=== PATIENT | male | born 1975 | race Caucasian/White ===

== ENCOUNTER → 2020-04-16 07:47 | Outpatient (CLI) | payer OTHER, SELFPAY ==
[2020-04-16 08:29] LABS: Add Manual Diff / Slide Review NO; Alanine Aminotransferase 42 IU/L (<50); Albumin 4.1 g/dL (3.5-5.0); Albumin Globulin Ratio 1.3 (1.0-2.8); Alkaline Phosphatase 63 U/L (38-126); Aspartate Aminotransferase 28 IU/L (17-59); BUN Creatinine Ratio 23.8 (6-22); Basophils Absolute Auto 100 /uL (0-100); Basophils Percent Auto 1.3 % (0-2); Bilirubin Total 0.4 mg/dL (0.2-1.3); Blood Urea Nitrogen 20 mg/dL (9-20); Calcium 9.4 mg/dL (8.4-10.2); Carbon Dioxide 32 mmol/L (22-32); Chloride 103 mmol/L (98-107); Cholesterol 240 mg/dL (140-199); Eosinophils Absolute Auto 300 /uL (0-450); Eosinophils Percent Auto 5.5 % (2-4); Estimated Glomerular Filt Rate > 60.0 mL/min (>60); Globulin 3.1 g/dL (1.7-4.1); Glucose 109 mg/dL (70-100); HDL Cholesterol 44 mg/dL (40-60); HEMOLYSIS < 15 (0-50); Hematocrit 42.6 % (41-53); Hemoglobin 14.4 g/dL (13.5-17.5); LDL Cholesterol Calculated 171 mg/dL (<100); Lymphocytes Absolute Auto 1800 /uL (1100-4500); Lymphocytes Percent Auto 33.3 % (25-40); Mean Corpuscular HGB Conc 33.7 % (30-36); Mean Corpuscular Hemoglobin 28.6 PG (26-34); Mean Corpuscular Volume 84.8 fL (80-100); Monocytes Absolute Auto 400 /uL (0-900); Monocytes Percent Auto 7.3 % (3-14); Neutrophils Absolute Auto 2800 /uL (1500-7000); Neutrophils Percent Auto 52.6 % (50-75); Platelet Count 294 X10^3/uL (150-400); Potassium 4.2 mmol/L (3.4-5.1); Red Blood Cell Count 5.02 X10^6/uL (4.5-5.9); Red Cell Distribution Width 12.9 % (11.6-14.8); Sodium 138 mmol/L (137-145); Total Protein 7.2 g/dL (6.3-8.2); Triglycerides 126 mg/dL (35-150); White Blood Cell Count 5.3 X10^3/uL (4.5-11.0)
[2020-04-16 09:21] LABS: TSH w/ Reflex to FT4 0.84 uIU/mL (0.47-4.68)
== END ==
PROVIDERS: PCP Family Medicine; Referring Provider Family Medicine; Visit Provider Family Medicine
DX: I10 Essential (primary) hypertension (principal)
CPT/HCPCS: 36415; 80053; 80061; 84443; 85025

== ENCOUNTER → 2020-05-28 16:43 | Outpatient (CLI) | payer OTHER, SELFPAY ==
[2020-05-28] MEDS: COVID-19 VACC, Ad26(JANSSEN)/PF 0.5 ML IM (16:54)
== END ==
PROVIDERS: PCP Family Medicine; Visit Provider Internal Medicine
DX: Z23 Encounter for immunization (principal)
CPT/HCPCS: 0031A; 91303

== ENCOUNTER 2020-07-06 13:26 | Emergency (ER) | payer OTHER, SELFPAY ==
[2020-07-06 13:31] VITALS: BP 156/88; PULSE 75; RESP 16; TEMP 36.9; O2SAT 100
--- NOTE | 2020-07-06 13:31 | DI.RAD.S_ITS ---
PROCEDURE: XR FINGER LT MIN 2V INDICATIONS: pain/swelling after fall TECHNIQUE: AP hand, 2 views of the 3rd finger(s) acquired. COMPARISON: None. FINDINGS: Bones: No fractures or dislocations. No suspicious bony lesions. Soft tissues: No suspicious soft tissue calcifications. IMPRESSION: No acute fracture. No osseous lesion. If symptoms and/or clinical suspicion for pathology persist, further assessment with repeat, or advanced imaging (e.g., CT, MRI, or bone scan) may be helpful for further assessment. Dictated by: Karen Bazzi M.D. on 07/06/2020 at 14:05 Approved by: Karen Bazzi M.D. on 07/06/2020 at 14:06
--- NOTE | 2020-07-06 13:39 | ED.UPPEXIN ---
HPI - Extremity Injury (Upper) General Chief Complaint: Extremity Injury, Upper Stated Complaint: left middle finger injury, fell and caught self Time Seen by Provider: 07/06/20 13:26 Source: patient Mode of arrival: Ambulatory Limitations: no limitations History of Present Illness HPI narrative: 45-year-old male nonsmoker with history of hypertension hyperlipidemia presents with family in the chief complaint of an injury to his left middle finger just prior to arrival. He had fallen while on his bow and injured his extended middle finger and now has pain with range of motion and some mild swelling. He has no numbness, tingling or weakness. He denies any wrist, elbow or shoulder pain and is otherwise well and free of complaint MD complaint: injury to: left and finger Onset (ago): hour(s) Other injuries: none Handedness: right Place: outdoors Severity: mild Relieving factors: rest Exacerbating factors: movement of extremity Context: direct blow Associated symptoms: denies other symptoms Related Data Previous Rx's Medication Instructions Recorded atorvastatin 20 mg tablet 20 mg PO DAILY #90 tab 04/21/20 hydrochlorothiazide 25 mg tablet 25 mg PO QDAY #90 tab 06/01/20 Allergies Allergy/AdvReac Type Severity Reaction Status Date / Time No Known Drug Allergies Allergy Verified 04/21/20 11:01 Review of Systems Constitutional Constitutional: Denies chills, Denies fatigue, Denies fever(s), Denies frequent falls, Denies lethargy and Denies weakness Eyes Eyes: Denies change in vision, Denies eye discharge, Denies irritation and Denies loss of vision ENT Ears, Nose, Mouth, and Throat: Denies change in voice, Denies dizziness, Denies neck pain, Denies sore throat and Denies throat swelling Cardiovascular Cardiovascular: Denies chest pain, Denies irregular heart rhythm, Denies lightheadedness, Denies palpitations, Denies dyspnea, Denies dyspnea on exertion and Denies orthopnea Respiratory Respiratory: Denies cough, Denies dyspnea, Denies dyspnea on exertion and Denies wheezing Gastrointestinal Gastrointestinal: Denies abdominal pain, Denies change in bowel habits, Denies diarrhea, Denies nausea and Denies vomiting Musculoskeletal Musculoskeletal: Reports arthralgias, Reports joint swelling, Denies neck pain and Denies numbness Integumentary/Breasts Skin/Breast: Denies pruritus, Denies erythema, Denies rash and Denies wounds Neurologic Neurologic: Denies behavioral changes, Denies confusion, Denies dizziness, Denies frequent falls, Denies loss of vision, Denies numbness and Denies weakness Psychiatric Psychiatric: Denies anxiety, Denies behavioral changes, Denies confusion, Denies depression, Denies homicidal ideation and Denies suicidal ideation Endocrine Endocrine: Denies fatigue, Denies flushing and Denies palpitations Hematologic/Lymphatic Hematologic/Lymphatic: Denies easy bruising Allergic/Immunologic Allergic/Immunologic: Denies urticaria, Denies throat swelling and Denies wheezing Patient History Medical History (Updated 07/06/20 @ 14:01 by Arnulfo Edwards DO) History of nephrolithiasis Lower urinary tract symptoms (LUTS) Melanoma Surgical History History of vasectomy Status post hernia repair Family History Father Age: 66 BPH (benign prostatic hyperplasia) Mother Age: 67 Essential hypertension Grandfather Dementia without behavioral disturbance, unspecified dementia type Grandmother Age: 97 Ulcerative pancolitis without complication Social History marital status: Smoking Status: Never smoker alcohol intake: current (1-2 A DAY ) substance use type: does not use Smoking Status: Never smoker Exam Narrative Exam Narrative: GEN: AOx3 and in mild distress EYES: Pupils are equal, round, and reactive to light and accommodation. Extraoccular muscles are intact bilaterally. There is no subconjunctival hemorrhage or exudate. CHEST: Lungs are clear to auscultation bilaterally and free of wheezes, rales, or rhonchi. Heart rate is regular rhythm, there are no murmurs, clicks, rubs, or gallops. There is no chest wall tenderness. ABD: Abdomen is soft and nontender. There is no guarding or rebound. Bowel sounds are normal in all 4 quadrants. There is no mass or organomegaly. EXT: Full but painful range of motion of left middle finger, most tender any proximal phalanx, patient is able to make a fist, this is closed, isolated and neurovascularly intact. SKIN: Warm, pink, and dry. No erythema or rash Initial Vital Signs Initial Vital Signs: Vital Signs Temperature 98.5 F 07/06/20 13:31 Pulse Rate 75 07/06/20 13:31 Respiratory Rate 16 07/06/20 13:31 Blood Pressure 156/88 H 07/06/20 13:31 Pulse Oximetry 100 07/06/20 13:31 Procedures Orthopedic Splinting/Casting Injury #1: Side: left Upper Extremity Injury Location: finger Upper Extremity Immobilizer: aluminum form splint Post splinting neuro exam: intact Post splinting vascular exam: intact Placed by: Nursing Course Orders Ordered: ED Orders 07/06/20 13:31 XR finger LT min 2V Stat Vital Signs Vital signs: Vital Signs - 8 hr 07/06/20 13:31 Temperature 98.5 F Pulse Rate 75 Respiratory Rate 16 Blood Pressure 156/88 H Pulse Oximetry 100 MDM - Extremity Injury (Upper) Imaging Data Extremity x-ray #1: Radiologist's Impression: [address] [id number] ReportSigned Patient: Edmond Dimas RMR#: [id number]: [id number]:[id number]/Sex: 45 / MDate of Service: 07/06/20Loc: EDAccession Number: [id number] Procedure: XR finger LT min 2V Ordering Provider: Arnulfo Edwards D.O. PROCEDURE: XR FINGER LT MIN 2V INDICATIONS: pain/swelling after fall TECHNIQUE: AP hand, 2 views of the 3rd finger(s) acquired. COMPARISON: None. FINDINGS: Bones: No fractures or dislocations. No suspicious bony lesions. Soft tissues: No suspicious soft tissue calcifications. IMPRESSION: No acute fracture. No osseous lesion. If symptoms and/or clinical suspicion for pathology persist, further assessment with repeat, or advanced imaging (e.g., CT, MRI, or bone scan) may be helpful for further assessment. Dictated by: Karen Bazzi M.D. on 07/06/2020 at 14:05 Approved by: Karen Bazzi M.D. on 07/06/2020 at 14:06 Discharge Plan Departure Patient Disposition: Home Clinical Impression: Finger sprain Qualifiers: Encounter type: initial encounter Finger: middle finger Sprain of finger site: other site Laterality: left Qualified Code(s): S63.693A - Other sprain of left middle finger, initial encounter Instructions: Finger Sprain Activity Restrictions/Additional Instructions: *You have been diagnosed with [fall with finger sprain, no evidence of fracture or dislocation on the imaging] *What to do: *Please continue to take your regular medications as directed. [ ] New medication prescriptions sent to your pharmacy: [ ] [ ] New medication written as a paper prescription [ x] No new medications given *Please follow up with your primary care provider in 2-3 days, call for an appointment. Let them know you were seen in the Emergency Department and that we ask that you be seen in follow up. We will electronically transmit a record of today's note if your PCP is in our system *If you do not have a primary care provider please contact the [facility] Resource line at [phone]. They will ask some questions about your medical history and help get you set up with a doctor in the community. *Return to Emergency Department if you should have any new, worsening or concerning symptoms, such as [fever greater than 101 F, shaking chills, worsening pain, persistent vomiting or other bothersome symptoms] Prescriptions: No Action atorvastatin [Lipitor] 20 mg tablet 20 mg PO DAILY Qty: 90 RF: 3 hydrochlorothiazide 25 mg tablet 25 mg PO QDAY Qty: 90 RF: 1 Referrals: Macrus To MD [Primary Care Provider] -
== END 2020-07-06 14:08 | disposition home or self-care (01) ==
PROVIDERS: Emergency Provider Emergency Medicine; PCP Family Medicine
DX: S63.693A Other sprain of left middle finger, initial encounter (principal); W19.XXXA Unspecified fall, initial encounter
CPT/HCPCS: 73140; 99281; 99283

== ENCOUNTER → 2021-11-30 08:19 | Outpatient (CLI) | payer OTHER, SELFPAY ==
[2021-11-30 10:49] LABS: Alanine Aminotransferase 43 IU/L (<50); Albumin Globulin Ratio 1.5 (1.0-2.8); Alkaline Phosphatase 59 U/L (38-126); Aspartate Aminotransferase 28 IU/L (17-59); Bilirubin Total 0.6 mg/dL (0.2-1.3); Blood Urea Nitrogen 18 mg/dL (9-20); Calcium 9.3 mg/dL (8.4-10.2); Carbon Dioxide 26 mmol/L (22-32); Chloride 103 mmol/L (98-107); Cholesterol 141 mg/dL (140-199); Estimated Glomerular Filt Rate > 60 mL/min (>60); Globulin 2.7 g/dL (1.7-4.1); Glucose 91 mg/dL (70-100); HDL Cholesterol 41 mg/dL (40-60); HEMOLYSIS < 15 (0-50); LDL Cholesterol Calculated 88 mg/dL (<100); Potassium 4.6 mmol/L (3.4-5.1); Sodium 140 mmol/L (137-145); Total Protein 6.7 g/dL (6.3-8.2); Triglycerides 58 mg/dL (35-150)
[2021-11-30 11:08] LABS: TSH w/ Reflex to FT4 0.51 uIU/mL (0.47-4.68)
[2021-11-30 11:12] LABS: Testosterone 410 ng/dL (132-813)
[2021-11-30 11:34] LABS: Creatinine Urine Random 213.5 mg/dL
[2021-11-30 11:44] LABS: Microalbumi Creatinin Ratio Ur 4.6 ug/mg CR (<30)
== END ==
PROVIDERS: PCP Family Medicine; Referring Provider Physician Assistant; Visit Provider Physician Assistant
DX: E78.2 Mixed hyperlipidemia (principal); I10 Essential (primary) hypertension; N52.9 Male erectile dysfunction, unspecified; R53.83 Other fatigue
CPT/HCPCS: 36415; 80053; 80061; 82043; 82570; 84403; 84443

== ENCOUNTER → 2022-08-22 10:34 | Outpatient (CLI) | payer OTHER, SELFPAY | PROVIDERS: PCP Family Medicine; Visit Provider Registered Nurse | DX: R30.0 Dysuria (principal) | CPT/HCPCS: 87086 ==

== ENCOUNTER → 2023-03-23 13:48 | Outpatient (CLI) | payer OTHER, SELFPAY | PROVIDERS: PCP Family Medicine; Visit Provider Nurse Practitioner Family | DX: R30.0 Dysuria (principal) | CPT/HCPCS: 87077; 87086; 87186 ==

== ENCOUNTER → 2023-04-17 10:15 | Outpatient (CLI) | payer OTHER, SELFPAY | PROVIDERS: PCP Family Medicine; Visit Provider Physician Assistant | DX: R30.0 Dysuria (principal) | CPT/HCPCS: 87077; 87086; 87186 ==

== ENCOUNTER → 2023-04-18 07:49 | Outpatient (CLI) | payer OTHER, SELFPAY ==
[2023-04-18 08:13] LABS: Add Manual Diff / Slide Review NO; Basophils Absolute Auto 0 /uL (0-100); Basophils Percent Auto 0.9 % (0-2); Eosinophils Absolute Auto 200 /uL (0-450); Eosinophils Percent Auto 4.5 % (2-4); Hematocrit 36.8 % (41-53); Hemoglobin 12.7 g/dL (13.5-17.5); Lymphocytes Absolute Auto 1600 /uL (1100-4500); Lymphocytes Percent Auto 30.2 % (25-40); Mean Corpuscular HGB Conc 34.4 % (30-36); Mean Corpuscular Hemoglobin 28.5 PG (26-34); Mean Corpuscular Volume 82.9 fL (80-100); Monocytes Absolute Auto 500 /uL (0-900); Monocytes Percent Auto 8.8 % (3-14); Neutrophils Absolute Auto 3000 /uL (1500-7000); Neutrophils Percent Auto 55.6 % (50-75); Platelet Count 208 X10^3/uL (150-400); Red Blood Cell Count 4.44 X10^6/uL (4.5-5.9); Red Cell Distribution Width 13.4 % (11.6-14.8); White Blood Cell Count 5.4 X10^3/uL (4.5-11.0)
[2023-04-18 08:24] LABS: Hemoglobin A1C% w Est Avg Glu 6.2 % (4.0-6.0)
[2023-04-18 08:45] LABS: Alanine Aminotransferase 36 IU/L (<50); Albumin 3.9 g/dL (3.5-5.0); Albumin Globulin Ratio 1.3 (1.0-2.8); Alkaline Phosphatase 68 U/L (38-126); Aspartate Aminotransferase 24 IU/L (17-59); BUN Creatinine Ratio 22.3 (6-22); Bilirubin Total 0.7 mg/dL (0.2-1.3); Blood Urea Nitrogen 21 mg/dL (9-20); Calcium 9.2 mg/dL (8.4-10.2); Carbon Dioxide 26 mmol/L (22-32); Chloride 103 mmol/L (98-107); Cholesterol 179 mg/dL (140-199); Estimated Glomerular Filt Rate > 60 mL/min (>60); Globulin 2.9 g/dL (1.7-4.1); Glucose 115 mg/dL (70-100); HDL Cholesterol 47 mg/dL (40-60); HEMOLYSIS < 15 (0-50); LDL Cholesterol Calculated 97 mg/dL (<100); Potassium 4.2 mmol/L (3.4-5.1); Sodium 136 mmol/L (137-145); Total Protein 6.8 g/dL (6.3-8.2); Triglycerides 177 mg/dL (35-150)
[2023-04-18 09:05] LABS: TSH w/ Reflex to FT4 1.31 uIU/mL (0.47-4.68)
[2023-04-18 09:08] LABS: Prostate Specific Antigen Scrn 6.55 ng/mL (0.1-4.0)
== END ==
PROVIDERS: PCP Family Medicine; Referring Provider Family Medicine; Visit Provider Family Medicine
DX: I10 Essential (primary) hypertension (principal); E78.5 Hyperlipidemia, unspecified; R39.9 Unspecified symptoms and signs involving the genitourinary system; Z12.5 Encounter for screening for malignant neoplasm of prostate
CPT/HCPCS: 36415; 80053; 80061; 83036; 84443; 85025; G0103

== ENCOUNTER → 2023-06-08 07:29 | Outpatient (CLI) | payer OTHER, SELFPAY ==
--- NOTE | 2023-06-08 07:33 | DI.US.S_ITS ---
PROCEDURE: US RENAL COMPLETE INDICATIONS: BPH; HX KIDNEY STONES TECHNIQUE: Real-time scanning was performed of the kidneys and bladder, with image documentation. COMPARISON: None. FINDINGS: Kidneys: Kidneys are normal in size. Right kidney measures 11.6 cm long; left kidney measures 12.2 cm long. Right renal cortical thickness is 1.3 cm; left renal cortical thickness is 1.5 cm. Renal cortical echotexture is normal. No hydronephrosis bilaterally. No right-sided nephrolithiasis. Left-sided nonobstructive nephrolith in the lower pole measuring 4 mm. No suspicious solid mass lesions. Bladder: Pre-void bladder volume is 103 mL. Post-void residual is 0 mL. Pre-void images demonstrate no intraluminal masses or stones. On pre-void images, left ureteral jets are noted with color Doppler interrogation. (Of note, ureteral jets may not be detectable in up to 25% of cases due to insufficient differences in specific gravity between ureteral and bladder urine). Miscellaneous: No free pelvic fluid. IMPRESSION: 1. No hydronephrosis bilaterally. Left lower pole nonobstructive nephrolith measuring 4 mm. 2. Bladder is under distended, limiting evaluation, with no intraluminal masses or stones. No significant postvoid residual. Dictated by: Shavon Barakat M.D. on 06/08/2023 at 10:04 Approved by: Shavon Barakat M.D. on 06/08/2023 at 10:15
== END ==
LOC: US 07:30
PROVIDERS: PCP Family Medicine; Referring Provider Specialist; Visit Provider Specialist
DX: N40.1 Benign prostatic hyperplasia with lower urinary tract symptoms (principal); R10.32 Left lower quadrant pain; Z87.440 Personal history of urinary (tract) infections; N20.0 Calculus of kidney
CPT/HCPCS: 36415; 76770; 84153

== ENCOUNTER → 2023-07-24 09:41 | Outpatient (CLI) | payer OTHER, SELFPAY ==
[2023-07-24 11:13] LABS: Hemoglobin A1C% w Est Avg Glu 5.7 % (4.0-6.0)
[2023-07-24 11:27] LABS: BUN Creatinine Ratio 26.3 (6-22); Blood Urea Nitrogen 26 mg/dL (9-20); Carbon Dioxide 25 mmol/L (22-32); Chloride 105 mmol/L (98-107); Estimated Glomerular Filt Rate > 60 mL/min (>60); Glucose 88 mg/dL (70-100); HEMOLYSIS < 15 (0-50); Potassium 3.9 mmol/L (3.4-5.1); Sodium 137 mmol/L (137-145)
[2023-07-24 11:56] LABS: Prostate Specific Antigen Scrn 3.93 ng/mL (0.1-4.0)
== END ==
PROVIDERS: PCP Family Medicine; Referring Provider Family Medicine; Visit Provider Family Medicine
DX: R73.01 Impaired fasting glucose (principal); Z12.5 Encounter for screening for malignant neoplasm of prostate
CPT/HCPCS: 36415; 80048; 83036; G0103

== ENCOUNTER → 2023-08-28 08:30 | Outpatient (CLI) | payer OTHER, SELFPAY ==
--- NOTE | 2023-08-28 08:31 | DI.RAD.S_ITS ---
PROCEDURE: XR KUB INDICATIONS: History of urinary calculi TECHNIQUE: One view of the abdomen acquired. COMPARISON: [facility], , US RENAL COMPLETE, 06/08/2023, 7:52. FINDINGS: Surgical changes and devices: None. Bowel: Bowel gas pattern is normal. Soft tissues: No suspicious abdominal calcifications. Visualized solid organ contours appear normal in size. Bones: No suspicious bony lesions. IMPRESSION: No calcifications overlying the renal shadows or expected course of the ureters. Dictated by: Gladys Gonzalez M.D. on 08/28/2023 at 15:26 Approved by: Gladys Gonzalez M.D. on 08/28/2023 at 15:27
== END ==
PROVIDERS: PCP Family Medicine; Referring Provider Specialist; Visit Provider Specialist
DX: R10.32 Left lower quadrant pain (principal); R39.9 Unspecified symptoms and signs involving the genitourinary system; Z87.442 Personal history of urinary calculi
CPT/HCPCS: 74018

== ENCOUNTER → 2023-09-07 16:32 | Outpatient (CLI) | payer OTHER, SELFPAY ==
--- NOTE | 2023-09-07 17:00 | DI.MRI.S_ITS ---
PROCEDURE: MR PELVIC PROSTATE PROTOCOL INDICATIONS: elevated psa TECHNIQUE: Coronal HASTE, axial T1 FSE with fat saturation, 3-plane nonbreath-hold T2 FSE. After the administration of contrast, dynamic axial, delayed axial and coronal VIBE or 2-D FLASH with fat saturation through the pelvis. Diffusion weighted imaging and ADC was performed. COMPARISON: None. FINDINGS: Image quality: Diffusion weighted and dynamic contrast enhanced images are diagnostic. Prostate: 4.6 x 3.3 x 3.6. Estimated volume is 28.4. PSA density is 0.14. Transitional zone heterogenous nodules are present, either well encapsulated or mostly encapsulated, compatible with PI-RADS 1 or 2 likely BPH nodules. Mildly T2 hypointense heterogenous striated appearance of the peripheral zone is commonly seen with current or prior prostatitis, PI-RADS 2. Left central gland lesion measures 1 x 0.8 x 0.8 cm (/, 06/29). DWI score 3. DCE negative. T2 score 3. PI-RADS 3. The seminal vesicles are clear, no extracapsular disease. Genitourinary system: Unremarkable bladder and distal ureters partially seen Bowel and peritoneum: No ascites. No bowel obstruction. Nodes and vessels: No aneurysmal vessel. No pathologic lymph nodes by size criteria Soft tissues: No inguinal hernias. Bones: No suspicious enhancing osseous abnormality IMPRESSION: PI-RADS 3 lesion in the left central gland. Sequelae of BPH and probable prostatitis. No high suspicion PI-RADS 4 or 5 lesion identified. Dictated by: Antonio Babcock M.D. on 09/08/2023 at 9:34 Approved by: Antonio Babcock M.D. on 09/08/2023 at 9:43
[2023-09-07 19:01] LABS: Prostate Specific Antigen 3.93 ng/mL (0.10-4.00)
== END ==
PROVIDERS: PCP Family Medicine; Referring Provider Specialist; Visit Provider Specialist
DX: N42.9 Disorder of prostate, unspecified (principal); R97.20 Elevated prostate specific antigen [PSA]
CPT/HCPCS: 36415; 72197; 84153; A9579

== ENCOUNTER → 2023-10-28 10:33 | Outpatient (CLI) | payer OTHER, SELFPAY ==
[2023-10-28 11:46] LABS: Hemoglobin A1C% w Est Avg Glu 5.6 % (4.0-6.0)
== END ==
LOC: LAB 10:34
PROVIDERS: PCP Family Medicine; Referring Provider Family Medicine; Visit Provider Family Medicine
DX: I10 Essential (primary) hypertension (principal); E78.5 Hyperlipidemia, unspecified; E11.9 Type 2 diabetes mellitus without complications
CPT/HCPCS: 36415; 83036

== ENCOUNTER → 2024-01-25 07:23 | Outpatient (CLI) | payer OTHER, SELFPAY ==
[2024-01-25 08:21] LABS: Hemoglobin A1C% w Est Avg Glu 5.4 % (4.0-6.0)
== END ==
PROVIDERS: PCP Family Medicine; Referring Provider Family Medicine; Visit Provider Family Medicine
DX: E11.9 Type 2 diabetes mellitus without complications (principal)
CPT/HCPCS: 36415; 83036

== ENCOUNTER → 2024-02-16 09:25 | Outpatient (CLI) | payer OTHER, SELFPAY ==
[2024-02-16 10:59] LABS: Prostate Specific Antigen 1.63 ng/mL (0.10-4.00)
== END ==
PROVIDERS: PCP Family Medicine; Referring Provider Urology; Visit Provider Urology
DX: R97.20 Elevated prostate specific antigen [PSA] (principal)
CPT/HCPCS: 36415; 84153

== ENCOUNTER → 2024-07-22 13:34 | Outpatient (CLI) | payer OTHER, SELFPAY ==
[2024-07-22 13:56] LABS: Add Manual Diff / Slide Review NO; Basophils Absolute Auto 100 /uL (0-100); Basophils Percent Auto 1.1 % (0-2); Eosinophils Absolute Auto 100 /uL (0-450); Eosinophils Percent Auto 2.1 % (2-4); Hematocrit 40.2 % (41-53); Hemoglobin 14.1 g/dL (13.5-17.5); Lymphocytes Absolute Auto 1900 /uL (1100-4500); Lymphocytes Percent Auto 29.1 % (25-40); Mean Corpuscular Hemoglobin 29.9 PG (26-34); Mean Corpuscular Volume 85.3 fL (80-100); Monocytes Absolute Auto 400 /uL (0-900); Monocytes Percent Auto 5.6 % (3-14); Neutrophils Absolute Auto 4000 /uL (1500-7000); Neutrophils Percent Auto 62.1 % (50-75); Platelet Count 231 X10^3/uL (150-400); Red Blood Cell Count 4.71 X10^6/uL (4.5-5.9); Red Cell Distribution Width 12.8 % (11.6-14.8); White Blood Cell Count 6.4 X10^3/uL (4.5-11.0)
[2024-07-22 14:04] LABS: Hemoglobin A1C% w Est Avg Glu 5.4 % (4.0-6.0)
[2024-07-22 14:15] LABS: Alanine Aminotransferase 43 IU/L (<50); Albumin 4.3 g/dL (3.5-5.0); Albumin Globulin Ratio 1.7 (1.0-2.8); Alkaline Phosphatase 63 U/L (38-126); Aspartate Aminotransferase 29 IU/L (17-59); BUN Creatinine Ratio 21.4 (6-22); Bilirubin Total 0.9 mg/dL (0.2-1.3); Blood Urea Nitrogen 21 mg/dL (9-20); Calcium 9.1 mg/dL (8.4-10.2); Carbon Dioxide 22 mmol/L (22-32); Chloride 103 mmol/L (98-107); Cholesterol 190 mg/dL (140-199); Estimated Glomerular Filt Rate > 60 mL/min (>60); Globulin 2.6 g/dL (1.7-4.1); Glucose 83 mg/dL (70-99); HDL Cholesterol 52 mg/dL (40-60); HEMOLYSIS 19 (0-50); LDL Cholesterol Calculated 112 mg/dL (<100); Potassium 3.9 mmol/L (3.4-5.1); Sodium 135 mmol/L (137-145); Total Protein 6.9 g/dL (6.3-8.2); Triglycerides 130 mg/dL (35-150)
== END ==
PROVIDERS: PCP Family Medicine; Referring Provider Family Medicine; Visit Provider Family Medicine
DX: I10 Essential (primary) hypertension (principal); E78.5 Hyperlipidemia, unspecified; E11.9 Type 2 diabetes mellitus without complications
CPT/HCPCS: 36415; 80053; 80061; 83036; 85025

== ENCOUNTER → 2025-01-23 09:37 | Outpatient (CLI) | payer OTHER, SELFPAY ==
[2025-01-23 10:18] LABS: Hemoglobin A1C% w Est Avg Glu 5.6 % (4.0-6.0)
[2025-01-23 10:30] LABS: Blood Urea Nitrogen 27 mg/dL (9-20); Calcium 9.2 mg/dL (8.4-10.2); Carbon Dioxide 28 mmol/L (22-32); Chloride 102 mmol/L (98-107); Estimated Glomerular Filt Rate > 60 mL/min (>60); Glucose 110 mg/dL (70-99); HEMOLYSIS < 15 (0-50); Potassium 4.0 mmol/L (3.4-5.1); Sodium 137 mmol/L (137-145)
== END ==
PROVIDERS: PCP Family Medicine; Referring Provider Family Medicine; Visit Provider Family Medicine
DX: E11.9 Type 2 diabetes mellitus without complications (principal)
CPT/HCPCS: 36415; 80048; 83036